=== PATIENT | female | born 1940 | race Caucasian/White ===

== ENCOUNTER 2018-04-13 14:45 | Emergency (ER) | payer MEDICARE, MEDICAID ==
[~2018-04-13] VITALS: Ht 172.7 cm; Wt 104.2 kg
[2018-04-13] MEDS ORDERED: ondansetron/PF 4mg/2ml inj IV ONE (15:10)
[2018-04-13 15:50] LABS: BASOPHILS % (AUTO) 0.5 % (0-1); EOSINOPHILS # (AUTO) 0.2 X10'3 (0-0.9); EOSINOPHILS % (AUTO) 2.8 % (0-6); HEMATOCRIT 41.8 % (35.0-45.0); HEMOGLOBIN 14.4 g/dl (12.0-16.0); LYMPHOCYTES # (AUTO) 1.8 X10'3 (1.1-4.8); LYMPHOCYTES % (AUTO) 20.1 % (21-51); MEAN CORPUSCULAR HEMOGLOBIN 30.9 PG (27.0-31.0); MEAN CORPUSCULAR HGB CONC 34.5 % (33.0-36.5); MEAN CORPUSCULAR VOLUME 89.6 FL (78-98); MEAN PLATELET VOLUME 7.8 FL (7.4-10.4); MONOCYTES # (AUTO) 0.9 X10'3 (0-0.9); MONOCYTES % (AUTO) 9.9 % (2-12); NEUTROPHILS # (AUTO) 5.8 X10'3 (1.8-7.7); NEUTROPHILS % (AUTO) 66.7 % (42-75); PLATELET COUNT 237 X10'3 (140-440); RED BLOOD COUNT 4.66 X10'6 (4.20-5.60); RED CELL DISTRIBUTION WIDTH 14.8 % (11.5-14.5); WHITE BLOOD COUNT 8.8 X10'3 (4.5-11.0)
[2018-04-13 15:55] LABS: CLARITY,URINE CLOUDY (Clear); COLOR,URINE YELLOW (Yellow); GLUCOSE, URINE NEGATIVE (Neg); KETONES,URINE NEGATIVE (Neg); LEUKOCYTE ESTERASE ,URINE SMALL (Neg); NITRITES, URINE NEGATIVE (Neg); OCCULT BLOOD,URINE NEGATIVE (Neg); PROTEIN,URINE NEGATIVE (Neg); UROBILINOGEN,URINE 0.2 E.U/dL (0.2-1.0)
[2018-04-13 15:56] LABS: UA COLLECTION TYPE CLN CATCH MIDSTREAM
[2018-04-13 16:02] LABS: HYALINE CASTS 0-3 /LPF (NEGATIVE); SQUAMOUS EPITHELIAL CELL,UR MODERATE /LPF (FEW)
[2018-04-13 16:04] LABS: BACTERIA,URINE 1+ /HPF (Neg); WBC CLUMPS,URINE MANY /HPF (NEGATIVE)
[2018-04-13 16:05] LABS: ALANINE AMINOTRANSFERASE 21 U/L (12-78); ALBUMIN 3.5 G/DL (3.4-5.0); ALKALINE PHOSPHATASE 68 IU/L (46-116); ANION GAP 9 (8-16); ASPARTATE AMINO TRANSFERASE 14 U/L (10-37); BILIRUBIN,TOTAL 0.3 MG/DL (0.1-1.0); BLOOD UREA NITROGEN 17 MG/DL (7-18); BUN/CREATININE RATIO 17.2 (6.6-38.0); CALCIUM 9.6 MG/DL (8.5-10.1); CHLORIDE 102 MMOL/L (99-107); CREATININE 0.99 MG/DL (0.40-0.90); GLUCOSE 100 MG/DL (70-104); POTASSIUM 4.1 MMOL/L (3.5-5.1); SODIUM 134 MMOL/L (135-145); TOTAL CARBON DIOXIDE 23.5 MMOL/L (24-32); TOTAL PROTEIN 7.1 G/DL (6.4-8.2); eGFR 55 ML/MIN
[2018-04-13] MEDS ORDERED: MECL-127 PO (16:46)
[2018-04-13] MEDS ORDERED: NITR100C6 PO (16:46)
[2018-04-13 17:03] VITALS: BP 96/75
== END 2018-04-13 17:19 | disposition home or self-care (01) ==
LOC: ER 14:46
DX: R42 Dizziness and giddiness (principal); R53.1 Weakness; N39.0 Urinary tract infection, site not specified; I48.91 Unspecified atrial fibrillation; Z87.01 Personal history of pneumonia (recurrent); Z88.2 Allergy status to sulfonamides; Z91.013 Allergy to seafood; Z79.01 Long term (current) use of anticoagulants
CPT/HCPCS: 36415; 71045; 80053; 81001; 83735; 83880; 84484; 85025; 87088; 93005; 96374; 99285; J2405

== ENCOUNTER 2019-04-15 14:30 | Emergency (ER) | payer MEDICARE, MEDICAID ==
[~2019-04-15] VITALS: Ht 172.7 cm; Wt 104.5 kg
[~2019-04-15 14:30] MED LIST: MECL-127 PO; NITR100C6 PO
[2019-04-15 15:44] LABS: BASOPHILS # (AUTO) 0.1 X10'3 (0-0.2); BASOPHILS % (AUTO) 1.1 % (0-1); EOSINOPHILS # (AUTO) 0.3 X10'3 (0-0.9); HEMATOCRIT 43.4 % (35.0-45.0); HEMOGLOBIN 14.5 g/dl (12.0-16.0); LYMPHOCYTES # (AUTO) 1.6 X10'3 (1.1-4.8); LYMPHOCYTES % (AUTO) 17.6 % (21-51); MEAN CORPUSCULAR HEMOGLOBIN 31.4 PG (27.0-31.0); MEAN CORPUSCULAR HGB CONC 33.5 g/dL (33.0-36.5); MEAN CORPUSCULAR VOLUME 93.5 FL (78-98); MEAN PLATELET VOLUME 7.6 FL (7.4-10.4); MONOCYTES # (AUTO) 0.8 X10'3 (0-0.9); NEUTROPHILS # (AUTO) 6.3 X10'3 (1.8-7.7); NEUTROPHILS % (AUTO) 69.3 % (42-75); PLATELET COUNT 239 X10'3 (140-440); RED BLOOD COUNT 4.64 X10'6 (4.20-5.60); RED CELL DISTRIBUTION WIDTH 14.5 % (11.5-14.5); WHITE BLOOD COUNT 9.1 X10'3 (4.5-11.0)
[2019-04-15 15:55] LABS: PARTIAL THROMBOPLASTIN TIME 32 SECONDS (22-32)
[2019-04-15 15:58] LABS: ALANINE AMINOTRANSFERASE 32 U/L (12-78); ALBUMIN 3.7 G/DL (3.4-5.0); ALKALINE PHOSPHATASE 49 IU/L (46-116); ANION GAP 12 (8-16); ASPARTATE AMINO TRANSFERASE 26 U/L (10-37); BILIRUBIN,TOTAL 0.4 MG/DL (0.1-1.0); BLOOD UREA NITROGEN 13 MG/DL (7-18); BUN/CREATININE RATIO 11.5 (6.6-38.0); CALCIUM 9.1 MG/DL (8.5-10.1); CHLORIDE 106 MMOL/L (99-107); CREATININE 1.13 MG/DL (0.40-0.90); GLUCOSE 146 MG/DL (70-104); POTASSIUM 4.2 MMOL/L (3.5-5.1); SODIUM 140 MMOL/L (135-145); TOTAL CARBON DIOXIDE 22.2 MMOL/L (24-32); TOTAL PROTEIN 7.5 G/DL (6.4-8.2); eGFR 47 ML/MIN
[2019-04-15] MEDS ORDERED: CefTRIAXone 2gm/D5W 50ml 50 ML IV ONE (17:10)
[2019-04-15] MEDS ORDERED: normal saline 1000ML IV soln IVB ONE ×2 (17:10→18:40)
[2019-04-15] MEDS ORDERED: phenazopyridine 100mg tablet PO ONE (17:15)
[2019-04-15 18:26] VITALS: BP 136/97
[2019-04-15 19:07] LABS: CLARITY,URINE CLEAR (Clear); COLOR,URINE YELLOW (Yellow); GLUCOSE, URINE NEGATIVE (Neg); KETONES,URINE NEGATIVE (Neg); LEUKOCYTE ESTERASE ,URINE NEGATIVE (Neg); NITRITES, URINE NEGATIVE (Neg); OCCULT BLOOD,URINE NEGATIVE (Neg); PH,URINE 5.5 (4.8-8.0); PROTEIN,URINE NEGATIVE (Neg); UROBILINOGEN,URINE 0.2 E.U/dL (0.2-1.0)
[2019-04-15 19:12] LABS: UA COLLECTION TYPE CLN CATCH MIDSTREAM
[2019-04-15] MEDS ORDERED: CEPH500C5 PO (19:43)
== END 2019-04-15 20:45 | disposition home or self-care (01) ==
LOC: ER 14:30
DX: R10.31 Right lower quadrant pain (principal); I48.91 Unspecified atrial fibrillation; I50.9 Heart failure, unspecified; Z88.2 Allergy status to sulfonamides; Z91.013 Allergy to seafood; Z79.2 Long term (current) use of antibiotics; Z79.899 Other long term (current) drug therapy
CPT/HCPCS: 36415; 71045; 80053; 81003; 83605; 84145; 85025; 85610; 85730; 87040; 93005; 96365; 99284; J0696; J7030

== ENCOUNTER 2024-09-03 14:14 | Emergency (ER) | payer MEDICARE, MEDICAID ==
[~2024-09-03] VITALS: Ht 170.2 cm; Wt 97.5 kg
[~2024-09-03 14:14] MED LIST changes: +AMI200T PO; +APIX5TAB3 PO; +ATOR20TA66 PO; +FLUT1AER INH; -NITR100C6 PO; +PANT40TA54 PO; +SEMA1PEN3 INJ; +[UNRECOGNIZED DRUG - CODE] PO
[2024-09-03] MEDS: normal saline 1000ML IV soln IV ONE (19:07)
[2024-09-03 19:18] LABS: ALANINE AMINOTRANSFERASE 15 U/L (12-78); ALBUMIN/GLOBULIN RATIO 0.7 (1.1-1.5); ALKALINE PHOSPHATASE 79 IU/L (46-116); ANION GAP 10 (8-16); ASPARTATE AMINO TRANSFERASE 11 U/L (10-37); BILIRUBIN,TOTAL 0.8 MG/DL (0.1-1.0); BLOOD UREA NITROGEN 9 MG/DL (7-18); BUN/CREATININE RATIO 10.1 (10.0-20.0); CALCIUM 9.9 MG/DL (8.5-10.1); CHLORIDE 103 MMOL/L (99-107); CREATININE 0.89 MG/DL (0.40-0.90); GLUCOSE 137 MG/DL (70-104); SODIUM 139 MMOL/L (135-145); TOTAL CARBON DIOXIDE 26.5 MMOL/L (24-32); TOTAL PROTEIN 7.3 G/DL (6.4-8.2); eCRCL 47 ML/MIN; eGFR 61 ML/MIN
[2024-09-03 19:22] LABS: CREATINE KINASE 67 U/L (26-192)
[2024-09-03 19:27] LABS: BASOPHILS # (AUTO) 0.1 X10'3 (0-0.2); BASOPHILS % (AUTO) 0.5 % (0-1); EOSINOPHILS # (AUTO) 0.2 X10'3 (0-0.9); LYMPHOCYTES # (AUTO) 1.5 X10'3 (1.1-4.8); MONOCYTES # (AUTO) 1.3 X10'3 (0-0.9)
[2024-09-03 19:31] LABS: HEMATOCRIT 40.9 % (35.0-45.0); HEMOGLOBIN 14.3 g/dl (12.0-16.0); LYMPHOCYTES % (AUTO) 13.7 % (21-51); MEAN CORPUSCULAR HEMOGLOBIN 32.2 PG (27.0-31.0); MEAN CORPUSCULAR HGB CONC 35.1 g/dL (33.0-36.5); MEAN PLATELET VOLUME 7.4 FL (7.4-10.4); MONOCYTES % (AUTO) 11.8 % (2-12); PLATELET COUNT 272 X10'3 (140-440); RED BLOOD COUNT 4.45 X10'6 (4.20-5.60); RED CELL DISTRIBUTION WIDTH 14.4 % (11.5-14.5); WHITE BLOOD COUNT 11.1 X10'3 (4.5-11.0)
[2024-09-03 19:33] LABS: POTASSIUM 3.2 MMOL/L (3.5-5.1)
[2024-09-03] MEDS: potassium Cl 20 mEq SR tablet PO ONE (20:24)
[2024-09-03 21:29] LABS: BILIRUBIN,URINE NEGATIVE (Neg); CLARITY,URINE CLEAR (Clear); COLOR,URINE YELLOW (Yellow); GLUCOSE, URINE NEGATIVE (Neg); KETONES,URINE TRACE mg/dl (Neg); LEUKOCYTE ESTERASE ,URINE TRACE (Neg); NITRITES, URINE NEGATIVE (Neg); OCCULT BLOOD,URINE NEGATIVE (Neg); PROTEIN,URINE TRACE mg/dl (Neg); UROBILINOGEN,URINE 0.2 E.U/dL (0.2-1.0)
[2024-09-03 21:38] LABS: UA COLLECTION TYPE CLN CATCH MIDSTREAM
[2024-09-03 21:40] LABS: AMORPHOUS URATES 2+; BACTERIA,URINE 1+ /HPF (Neg); RBC,URINE NONE SEEN /HPF (0-2); SQUAMOUS EPITHELIAL CELL,UR FEW /LPF (FEW)
[2024-09-03 21:48] VITALS: TEMP 99
[2024-09-03] MEDS ORDERED: AZIT250T83 PO (22:14)
[2024-09-03 22:43] VITALS: BP 145/79; PULSE 69; RESP 12; O2SAT 93
== END 2024-09-03 22:45 | disposition home or self-care (01) ==
LOC: ER 14:15
DX: R19.7 Diarrhea, unspecified (principal); E86.0 Dehydration; I48.91 Unspecified atrial fibrillation; E11.9 Type 2 diabetes mellitus without complications; I50.9 Heart failure, unspecified; Z88.2 Allergy status to sulfonamides; Z79.899 Other long term (current) drug therapy; Z79.52 Long term (current) use of systemic steroids
CPT/HCPCS: 36415; 71045; 80053; 81001; 82550; 83605; 83735; 84145; 84484; 85025; 87040; 87088; 93005; 96360; 99285; J7030